=== PATIENT | male | born 1985 ===

== ENCOUNTER → 2025-10-15 10:41 | Outpatient (CLI) | payer OTHER, SELFPAY | LOC: PHYS 10:43 | PROVIDERS: PCP Preventive Medicine Aerospace Medicine; Referring Provider Preventive Medicine Aerospace Medicine; Visit Provider Preventive Medicine Aerospace Medicine | DX: G56.00 Carpal tunnel syndrome, unspecified upper limb (principal) | CPT/HCPCS: 95886; 95910 ==